=== PATIENT | male | born 1950 | race Caucasian/White ===

== ENCOUNTER → 2017-11-10 | Outpatient (CLI) | payer MEDICARE, BC ==
--- NOTE | 2017-11-10 16:20 | RAD ---
EXAM: Left lower extremity venous Doppler. HISTORY: Left thigh pain/swelling. COMPARISON: None. FINDINGS: Grayscale and Doppler analysis of the left lower extremity deep venous system was performed with graded compression and augmentation. The common femoral, greater saphenous, superficial femoral, popliteal and calf veins were assessed. There is superficial venous thrombosis within the left greater saphenous vein. There is no deep venous thrombosis. IMPRESSION: 1. Superficial venous thrombosis in the left greater saphenous vein. The deep venous system is not involved. Electronically signed by: Patricia Zabala MD (11/10/2017 4:17 PM) [facility]
== END | disposition home or self-care (01) ==
LOC: PMG 14:51
PROVIDERS: ATTEND Family Medicine
DX: I82.812 Embolism and thrombosis of superficial veins of left lower extremity (principal)
CPT/HCPCS: 93971

== ENCOUNTER → 2018-03-30 | Outpatient (CLI) | payer MEDICARE ==
--- NOTE | 2018-03-31 07:46 | RAD ---
Chest, 2 views, 03/30/2018: HISTORY: Shortness of breath, lung cancer No previous chest radiographs are available at this time for comparison purposes. The heart is within normal limits in size. There are mildly prominent interstitial markings in the lungs as well as prominence of the fissures. Mild interstitial edema is suspected. A component of fibrosis cannot be excluded. There are small bilateral pleural effusions with mild underlying atelectasis posteriorly. No pulmonary mass is evident. Moderate multilevel degenerative changes are present in the spine. IMPRESSION: Interstitial prominence suggesting mild interstitial pulmonary edema with small bilateral pleural effusions. Electronically signed by: Spike Silva MD (03/31/2018 7:43 AM) [facility]
== END | disposition home or self-care (01) ==
LOC: RAD 19:12
PROVIDERS: ATTEND Family Medicine
DX: R06.02 Shortness of breath (principal)
CPT/HCPCS: 71046